=== PATIENT | female | born 1990 | race Caucasian/White ===

== ENCOUNTER 2017-11-11 16:42 | Outpatient (CLI) ==
[2014-02-07 15:08] VITALS: BMI 18.7
== END 2017-11-11 16:43 | disposition home or self-care (01) ==
LOC: LAB 16:42
PROVIDERS: ATTEND Nurse Practitioner Family
DX: Z00.00 Encounter for general adult medical examination without abnormal findings (principal)
CPT/HCPCS: 36415; 80053; 80061; 84443; 85025

== ENCOUNTER 2018-01-14 08:52 | Outpatient (CLI) ==
[2014-02-07 15:08] VITALS: BMI 18.7
== END 2018-01-14 08:53 | disposition home or self-care (01) ==
LOC: RHC-LAB 08:52
PROVIDERS: ATTEND Nurse Practitioner Family
DX: N92.6 Irregular menstruation, unspecified (principal); R11.0 Nausea
CPT/HCPCS: 36415; 84703